=== PATIENT | female | born 1965 | race Caucasian/White ===

== ENCOUNTER → 2021-11-05 | Outpatient (CLI) | payer SELFPAY | LOC: COL.VAS 11:15 | DX: M79.604 Pain in right leg (principal); M79.89 Other specified soft tissue disorders ==

== ENCOUNTER 2024-01-20 19:57 | Inpatient (IN) | payer OTHER ==
[~2024-01-20] VITALS: Ht 172.7 cm; Wt 100.6 kg
[2024-01-20 20:47] LABS: BASO % 0.4 % (0.0-2.0); EOS # 0.3 K/mm3 (0.0-0.7); EOS % 3.5 % (0.0-4.0); GRAN # 5.2 K/mm3 (1.4-6.5); GRAN % 64.1 % (42.2-75.2); HEMATOCRIT 39.7 % (37.0-47.0); HEMOGLOBIN 12.7 g/dl (12.5-16.0); LYMPH % 25.2 % (20.0-51.0); MEAN CELL VOLUME 91 fl (80.0-100.0); MEAN CORPUSCULAR HEMOGLOBIN 29 pg (27-31); MEAN CORPUSCULAR HGB CONC 32 g/dl (33.0-37.0); MEAN PLATELET VOLUME 10.6 fl (7.4-10.4); MONO # 0.5 K/mm3 (0.1-0.6); MONO % 6.4 % (1.7-9.3); PLATELET COUNT 203 K/mm3 (130-400); RED BLOOD COUNT 4.38 M/mm3 (4.10-5.30); REDCELL DISTRIBUTION WIDTH-CV 13.8 % (11.5-14.5)
[2024-01-20 21:05] LABS: ALBUMIN 3.5 g/dL (3.5-5.0); BILIRUBIN,TOTAL 0.3 mg/dL (0.2-1.2); CALCIUM 9.5 mg/dL (8.4-10.2); CREATININE, serum 0.81 mg/dL (0.57-1.11); TOTAL PROTEIN 7.4 g/dl (6.2-8.1)
[2024-01-20] MEDS ORDERED: Morphine 4 MG/ML VIAL IV ONE (21:15)
[2024-01-20] MEDS ORDERED: ceFAZolin 2 G in Water For Injection,Sterile 20 ML IV ONE (22:00)
[2024-01-20] MEDS ORDERED: Ondansetron 4 MG/2 ML VIAL IV PRN (22:30)
[2024-01-20] MEDS ORDERED: oxyCODONE 5 MG TAB PO PRN (22:30)
[2024-01-20] MEDS ORDERED: Acetaminophen 500 MG TAB PO SCH (22:45)
[2024-01-20] MEDS ORDERED: fentaNYL 50 MCG/ML 2 ML VIAL IV PRN (22:45)
--- NOTE | 2024-01-20 23:43 | NUR ---
THE PATIENT ARRIVED VIA WC FROM THE ED ACCOMPANIED BY ED STAFF. THE PATIENT WAS ABLE TO AMBULATE WITH A STEADY GAIT TO THE BED FROM THE HALLWAY. THE PATIENT IS ALERT AND ORIENTED. THE PATIENT WAS ORIENTED TO THE ROOM AND BED CONTROLS. CALL LIGHT AND PERSONAL BELONGINGS WITHIN REACH.
[2024-01-20] MEDS ORDERED: TYLENOL 500MG500 MG PO (23:50)
[2024-01-20] MEDS ORDERED: ADVIL200 MG PO (23:51)
[2024-01-20 23:54] VITALS: BP 138/76; PULSE 92; TEMP 97.6
[2024-01-21] VITALS (7 sets, daily range): BP systolic 123–138; BP diastolic 48–80; PULSE 60–85; TEMP 97.8–98.3
--- NOTE | 2024-01-21 05:53 | NUR ---
58 yo female admitted for further care and management of sepsis likely secondary to a skin/soft tissue source (b/l lower extremity cellulitis). ht 172.7 cm wt 102.3 kg SCr 0.81 with an estimated CrCl >60 ml/min half life 12.7 hours Plan: Patient received an initial loading dose of vancomycin 2000 mg x1 (19.6 mg/kg); will follow with a maintenance regimen of vancomycin 1250 mg q12h to target a goal trough of 10-15 mcg/ml. Will follow patient's renal function, micro data, and vancomycin levels as indicated to assess for any necessary changes to regimen. Thank you for this dosing consult.
[2024-01-21] MEDS ORDERED: ceFAZolin 2 G in Water For Injection,Sterile 20 ML IV SCH (06:30)
[2024-01-21 06:42] LABS: BASO % 0.3 % (0.0-2.0); EOS # 0.2 K/mm3 (0.0-0.7); EOS % 2.8 % (0.0-4.0); GRAN # 4.9 K/mm3 (1.4-6.5); GRAN % 69.6 % (42.2-75.2); HEMOGLOBIN 11.6 g/dl (12.5-16.0); LYMPH # 1.3 K/mm3 (1.2-3.4); LYMPH % 19.1 % (20.0-51.0); MEAN CELL VOLUME 90 fl (80.0-100.0); MEAN CORPUSCULAR HEMOGLOBIN 29 pg (27-31); MEAN CORPUSCULAR HGB CONC 32 g/dl (33.0-37.0); MEAN PLATELET VOLUME 10.5 fl (7.4-10.4); MONO # 0.6 K/mm3 (0.1-0.6); MONO % 7.8 % (1.7-9.3); PLATELET COUNT 177 K/mm3 (130-400); RED BLOOD COUNT 4.04 M/mm3 (4.10-5.30); REDCELL DISTRIBUTION WIDTH-CV 13.8 % (11.5-14.5)
[2024-01-21 06:45] LABS: HEMATOCRIT 36.5 % (37.0-47.0)
[2024-01-21 06:58] LABS: CALCIUM 8.7 mg/dL (8.4-10.2); CREATININE, serum 0.68 mg/dL (0.57-1.11)
[2024-01-21] MEDS ORDERED: Vancomycin 1.25 GM,Special Dose/Pharmacy Prepared 1.25 GM in NS 250 ML IV SCH (10:30)
--- NOTE | 2024-01-21 10:50 | NUR ---
PT LAYING IN BED UPON ENTERING. ASSESSMENT DONE, MEDS GIVEN PER ORDER. PT REPORTS 4/10 PAIN AND DENIES NEED FOR PRN. INT TO RIGHT FOREARM PATENT. WEEPING WOUNDS NOTED TO RIGHT LOWER EXTREMITY, DRAINAGE NOTED TO DRESSING. TIGHT SKIN ON LEFT LOWER EXTREMITY, NO DRAINAGE NOTED AND NO DRESSING AT THIS TIME. PT DENIES NEEDS. BED IN LOWEST POSITION, CALL LIGHT IN REACH
--- NOTE | 2024-01-21 10:56 | NUR ---
Data: Spiritual care visit offered during [facility] Clinician rounds. Patient politely declined. Assessment: None. Patient declined. Plan of Care: Eap Clinician adjusted the window blinds for Patient. Eap Clinician educated Patient as to how to request a Eap Clinician should she change her mind. Chaplains will remain available as needed/requested while Patient is admitted to this hospital.
--- NOTE | 2024-01-21 10:56 | NUR ---
PT REPORTS SUDDEN NAUSEA AND "FEELING HOT". UPON THIS NURSE BRINGING BACK ASHIA PT REPORTS IMPROVED NAUSEA AND DENIES NEED FOR PRN AT THIS TIME. VITALS WITHIN NORMAL LIMITS
--- NOTE | 2024-01-21 14:33 | NUR ---
SW met with patient to complete initial assessment for discharge planning. Patient verified that she lives alone with her dog in [facility]. She denies having a PCP, uses [facility] and denies having any DME. Patient lists her daughter Gwendolyn Bernard ([phone]) as her contact. Patient denies having a DPOA and declines to complete one. 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 Patient was provided with a PCP list to establish care. She is covered by [employer]. Patient plans to return home and to work. Discharge plan: Home
--- NOTE | 2024-01-21 15:52 | NUR ---
IV TO RIGHT FOREARM INFILTRATED AT END OF VANCOMYCIN INFUSION, EDEMA AND REDNESS NOTED, I&C TECH NOTIFIED. 2 ATTEMPTS BY THIS NURSE WITH NO SUCCESS, AND 2 OTHER ATTEMPTS BY FLOOR NURSES. ATTEMPTED TO CALL DR WELLINGTON WITH NO ANSWER.
--- NOTE | 2024-01-21 17:58 | NUR ---
ICU NURSE ATTEMPTED IV WITH NO SUCCESS. ICU NURSE REEDUCATED PT ON CENTRAL LINE AND STATES THAT PT IS MORE OPEN TO THE IDEA. DR WELLINGTON UPDATED AND TELLS THIS NURSE THAT HE WILL TALK TO HER ABOUT CENTRAL LINE IN THE MORNING AND ORAL ANTIBIOTICS WILL BE GIVEN TONIGHT. THE NURSE VOICED THAT PT WILL BE WITHOUT AN IV TONIGHT AND PROVIDER STATES THATS OKAY AND THAT AN ORDER CAN BE PLACED STATING THIS.
--- NOTE | 2024-01-21 18:23 | NUR ---
DRESSING SOAKED WITH STERILE WATER AND REMOVED FROM RIGHT LOWER EXTREMITY. MULTIPLE OPEN WOUNDS NOTED WITH DRAINAGE NOTED. NONSTICK PADS, 2 ABD PADS AND KERLIZ USED TO DRESS WOUND. PTS LEG ELEVATED ON PILLOW. PT DENIES NEEDS. BED IN LOWEST POSITION, CALL LIGHT IN REACH
--- NOTE | 2024-01-21 20:00 | NUR ---
NURSING SHIFT ASSESSMENT COMPLETED. THE PATIENT WAS ALERT AND ORIENTED AND APPROPRIATE. THE PATIENT RATED HER RIGHT LOWER EXTREMITY PAIN 3/10. NO INTERVENTIONS NEEDED AT THIS TIME. THE PATIENT WAS VISITING WITH HER DAUGHTER AND EATING FOOD THAT HER DAUGHTER BROUGHT FOR HER. THE PATIENT DENIED OTHER NEEDS AT THIS TIME. THE PLAN OF CARE AND EVENING MEDICATIONS REVIEWED. QUESTIONS ANSWERED. CALL LIGHT AND PERSONAL BELONGINGS WITHIN REACH. BED IN LOW POSITION. THE PATIENT IS UP INDEPENDENTLY IN THE ROOM.
[2024-01-21] MEDS ORDERED: Cefdinir 300 MG CAP PO SCH (21:00)
[2024-01-21] MEDS ORDERED: Linezolid 600 MG TAB PO SCH (21:00)
[2024-01-22 07:18] LABS: CALCIUM 9.4 mg/dL (8.4-10.2); CREATININE, serum 0.62 mg/dL (0.57-1.11); POTASSIUM 3.9 mEq/L (3.5-4.5)
[2024-01-22 07:22] LABS: BASO % 0.3 % (0.0-2.0); EOS # 0.2 K/mm3 (0.0-0.7); EOS % 2.4 % (0.0-4.0); GRAN # 4.1 K/mm3 (1.4-6.5); GRAN % 65.5 % (42.2-75.2); HEMATOCRIT 39.3 % (37.0-47.0); HEMOGLOBIN 12.8 g/dl (12.5-16.0); LYMPH # 1.6 K/mm3 (1.2-3.4); LYMPH % 25.4 % (20.0-51.0); MEAN CELL VOLUME 89 fl (80.0-100.0); MEAN CORPUSCULAR HEMOGLOBIN 29 pg (27-31); MEAN CORPUSCULAR HGB CONC 33 g/dl (33.0-37.0); MONO # 0.4 K/mm3 (0.1-0.6); MONO % 6.1 % (1.7-9.3); PLATELET COUNT 184 K/mm3 (130-400); RED BLOOD COUNT 4.42 M/mm3 (4.10-5.30); REDCELL DISTRIBUTION WIDTH-CV 13.3 % (11.5-14.5)
[2024-01-22 08:07] VITALS: BP 136/78; PULSE 86; TEMP 98.2
[2024-01-22 08:50] VITALS: BP_SYST 136
--- NOTE | 2024-01-22 08:50 | NUR ---
PT LAYING IN BED UPON ENTERING. ASSESSMENT DONE, MEDS GIVEN. NO IV AT THIS TIME, HOSPITALIST AWARE. PT REPORTS TOLERABLE PAIN AND DENIES NEED FOR PRN. DRESSING TO RIGHT LEG CLEAN DRY AND INTACT. PT DENIES NEEDS. BED IN LOWEST POSITION, CALL LIGHT IN REACH.
[2024-01-22] MEDS ORDERED: Furosemide 20 MG TAB PO SCH (12:23)
[2024-01-22 21:00] VITALS: BP 169/87; PULSE 70; TEMP 98.7
[2024-01-23 01:37] VITALS: BP 143/84; PULSE 83; TEMP 97.7
--- NOTE | 2024-01-23 04:26 | NUR ---
Dressing to RLE done as well as wound culture. Pt denies any pain and slept well overnight. Alert and oriented VSS.
[2024-01-23 06:57] LABS: BASO % 0.4 % (0.0-2.0); EOS # 0.2 K/mm3 (0.0-0.7); GRAN % 56.1 % (42.2-75.2); HEMATOCRIT 42.8 % (37.0-47.0); HEMOGLOBIN 13.8 g/dl (12.5-16.0); LYMPH # 1.7 K/mm3 (1.2-3.4); LYMPH % 32.2 % (20.0-51.0); MEAN CELL VOLUME 89 fl (80.0-100.0); MEAN CORPUSCULAR HEMOGLOBIN 29 pg (27-31); MEAN CORPUSCULAR HGB CONC 32 g/dl (33.0-37.0); MEAN PLATELET VOLUME 11.4 fl (7.4-10.4); MONO # 0.4 K/mm3 (0.1-0.6); MONO % 7.9 % (1.7-9.3); PLATELET COUNT 191 K/mm3 (130-400); REDCELL DISTRIBUTION WIDTH-CV 13.5 % (11.5-14.5)
[2024-01-23 07:17] LABS: CALCIUM 9.6 mg/dL (8.4-10.2); CREATININE, serum 0.67 mg/dL (0.57-1.11); POTASSIUM 3.9 mEq/L (3.5-4.5)
--- NOTE | 2024-01-23 07:19 | NUR ---
Bedside report recieved from BOONE Allan. Pt awake in bed with no complaints. Call light within reach.
[2024-01-23 07:26] VITALS: BP 165/91; PULSE 89; TEMP 97.8
[2024-01-23 07:36] VITALS: BP_SYST 165
--- NOTE | 2024-01-23 08:20 | NUR ---
Pt awake in bed with no complaints. Shift assessment completed. VSS. Dressing to RLE in place, CDI with no drainage noted at this time. LLE ulcer on top of chavez dry/scabbed. Pt denies pain at this time rating 0/10. Pt has no request at this time. Call light within reach.
[2024-01-23 11:54] VITALS: BP 156/102; PULSE 85; TEMP 97.8
[2024-01-23] MEDS ORDERED: LASIX 20MG TABL20 MG PO (11:58)
[2024-01-23] MEDS ORDERED: ZYVOX 600MG600 MG PO (11:58)
[2024-01-23] MEDS ORDERED: OMNICEF 300MG300 MG PO (11:58)
[2024-01-23] MEDS ORDERED: ASPIRIN 81M81 MG/TA2 PO (12:04)
--- NOTE | 2024-01-23 12:49 | NUR ---
Discharge instructions provided to pt and pt verbalzied understanding of discharge paperwork. Pt leaving facility by personal vehicle back to home. All questions and concerns answered accordingly.
== END 2024-01-23 12:50 | disposition home or self-care (01) | DRG 603 ==
LOC: COL.ER 19:57 → MEDICAL 21:52
PROVIDERS: Physician Assistant; ADMIT Internal Medicine
DX: L03.116 Cellulitis of left lower limb (principal); L97.819 Non-pressure chronic ulcer of other part of right lower leg with unspecified severity; L97.829 Non-pressure chronic ulcer of other part of left lower leg with unspecified severity; T82.898A Other specified complication of vascular prosthetic devices, implants and grafts, initial encounter; F17.210 Nicotine dependence, cigarettes, uncomplicated; Z66 Do not resuscitate; I87.2 Venous insufficiency (chronic) (peripheral); L03.115 Cellulitis of right lower limb; R70.0 Elevated erythrocyte sedimentation rate; R79.82 Elevated C-reactive protein (CRP); Y84.8 Other medical procedures as the cause of abnormal reaction of the patient, or of later complication, without mention of misadventure at the time of the procedure; L29.9 Pruritus, unspecified; E66.9 Obesity, unspecified; Z88.1 Allergy status to other antibiotic agents; Z88.8 Allergy status to other drugs, medicaments and biological substances; Z68.33 Body mass index [BMI] 33.0-33.9, adult
CPT/HCPCS: J0688; J1650; J2270; J3010; J3370; J7040; J7050